=== PATIENT | female | born 1985 | race Hispanic/Latino ===

== ENCOUNTER 2021-07-10 19:02 | Emergency (ER) | payer OTHER ==
[~2021-07-10] VITALS: Ht 167.6 cm; Wt 90.7 kg
[2021-07-10 19:24] LABS: BASOPHILS % (AUTO) 0.6 % (0.0-5.0); EOSINOPHILS % (AUTO) 1.7 % (0.0-8.0); HEMATOCRIT 36.3 % (36-48); LYMPHOCYTES % (AUTO) 32.8 % (21.0-51.0); MEAN CORPUSCULAR HEMOGLOBIN 21.6 pg (27.0-33.0); MEAN CORPUSCULAR HGB CONC 28.9 g/dL (32.0-36.0); MEAN CORPUSCULAR VOLUME 74.8 fL (79-99); MONOCYTES % (AUTO) 6.6 % (3.0-13.0); NEUTROPHILS % (AUTO) 58.1 % (40.0-77.0); PLATELET COUNT (AUTO) 444 K/uL (130-400); RED BLOOD CELL COUNT(AUTO) 4.85 MIL/uL (4.00-5.50); RED CELL DISTRIBUTION WIDTH 15.1 % (11.0-15.5)
[2021-07-10 19:33] LABS: CREATININE 0.8 mg/dL (0.5-1.5)
[2021-07-10 19:42] LABS: ALBUMIN 3.6 g/dL (3.5-5.0); BILIRUBIN,TOTAL 0.6 mg/dL (0.2-1.0); TOTAL PROTEIN, SERUM 8.2 g/dL (6.0-8.3)
[2021-07-10] MEDS ORDERED: HYDR-3421 PO (23:09)
[2021-07-10 23:16] VITALS: BP 128/54
[2021-07-10] MEDS ORDERED: LORAZEPAM 1 MG TABLET PO ONE (23:30)
== END 2021-07-10 23:31 | disposition home or self-care (01) ==
LOC: EDH 19:02
DX: F41.9 Anxiety disorder, unspecified (principal); R00.2 Palpitations; E66.9 Obesity, unspecified; Z68.32 Body mass index [BMI] 32.0-32.9, adult; Z90.49 Acquired absence of other specified parts of digestive tract
CPT/HCPCS: 36415; 71045; 80053; 84484; 85025; 93005